=== PATIENT | male | born 1945 | race Native Hawaiian/Other Pacific Islander ===

== ENCOUNTER 2020-02-11 15:38 | Emergency (ER) | payer MEDICARE ==
[2020-02-11 15:49] VITALS: BP 171/97
[2020-02-11] MEDS ORDERED: TETANUS,DIPH,PERTUSS(ACELL) VACCINE 0.5 ML SYRINGE IM ONE (16:15)
[2020-02-11] MEDS ORDERED: MORPHINE 4 MG/1 ML INJ IV ONE (16:15)
[2020-02-11] MEDS ORDERED: SODIUM CHLORIDE 0.9% IRR 500 ML BOTTLE IR ONE (16:16)
[2020-02-11] MEDS ORDERED: LIDOCAINE (1%) 10 MG/1 ML VIAL 20 ML MDV INFILTRATI ONE (16:16)
--- NOTE | 2020-02-11 16:25 | Emergency Department Report ---
Upper Extremity - HPI Chief Complaint: Extremity Injury, Upper Stated Complaint: FINGER INJURY Time Seen by Provider: 02/11/20 16:10 Upper Extremity: Left Ring Finger, Left Little Finger Occurred When: Today Mechanism: Other (Patient cut his hands accidentally with a saw) Severity: severe Symptoms: Yes Pain with Movement, Yes Deformity, Yes Limited Range of Movement, Yes Swelling, Yes Bruising/Ecchymosis, Yes Laceration or Abrasion Other History: The patient is a 75-year-old gentleman, who is right-hand dominant, not known to myself previously, who reports no fever, cough, or confirmed exposure to coronavirus. He presents to the emergency room today with an accidental amputation of his left pinky, distal to the PIP joint, and near complete transection of the left fourth digit, approximately at the PIP joint. He has no other injuries, and no other complaints. ED Review of Systems ROS: Stated complaint: FINGER INJURY Other details as noted in HPI Comment: Please see history of present Constitutional: see HPI Eyes: as per HPI ENT: as per HPI Respiratory: see HPI Cardiovascular: as per HPI Endocrine: see HPI Gastrointestinal: as per HPI Genitourinary: as per HPI Musculoskeletal: as per HPI, arthralgia, myalgia Neurological: as per HPI Psychiatric: as per HPI Hematological/Lymphatic: as per HPI ED Past Medical Hx - Past Medical History Hx Diabetes: Yes (non compliant with meds) - Surgical History Past Surgical History?: Yes Additional Surgical History: RIGHT EYE SURGERY - Social History Smoking Status: Never Smoker Substance Use Type: None - Medications Home Medications: Home Medications Medication Instructions Recorded Confirmed Last Taken Type Clindamycin [Clindamycin CAP] 600 mg PO BID #20 capsule 01/14/16 Unknown Rx HYDROcodone/APAP 5-325 [Starke 1 each PO Q6HR PRN #14 tablet 01/14/16 Unknown Rx 5/325] Upper Extremity Exam - Exam General: Vital signs noted. No distress. Alert and acting appropriately. There is no facial droop. The tongue is midline. Extraocular movements are intact bilaterally. There is 5 out of 5 strength in bilateral upper and lower extremities. Sensation is intact to light touch bilateral upper and lower extremities. 2+ pulses noted in the bilateral upper extremities. There is an obvious left fifth finger complete amputation, distal to the PIP joint, and there is a laceration/near complete transection of the left fourth digit, at the PIP joint, with no obvious foreign body. The amputated pinky is currently wrapped in 4 x 4 gauze, cold sterile saline, and a bag/container, which is then placed in ice. Head and Torso: No HEENT Abnormality, No Neck Tenderness, No Chest/Lungs Abnormality, No Abdominal Tenderness, No Back Tenderness Shoulder Exam: Yes Normal Range of Motion in Shoulder, No Shoulder Tenderness, No Clavicle Tenderness, No Shoulder Deformity, No AC Joint Tenderness Arm Exam: No Arm/Humerus Tenderness, No Arm Deformity Elbow: Yes Normal Range of Motion in Elbow, No Elbow Tenderness, No Elbow Deformity Forearm: No Forearm Tenderness, No Forearm Deformity, No Pain with Pronation, No Pain with Supination Wrist: Yes Normal ROM in Wrist, No Wrist Tenderness, No Wrist Deformity, No Snuffbox Tenderness, No Pain with Axial Thumb Compression Hand: Yes Digit(s) Deformity, Yes Tendon Dysfunction, No Hand Tenderness, No Hand Deformity, No Digit Tenderness, No Normal ROM in Digit(s) CMS Exam: Yes Broken Skin, Yes Normal Distal Pulses, Yes Normal Capillary Refill ED Course Vital Signs 02/11/20 02/11/20 02/11/20 15:46 15:47 15:52 Temperature 97.8 F Pulse Rate 87 90 Respiratory 13 17 12 Rate Blood Pressure Blood Pressure 171/97 [Right] O2 Sat by Pulse 95 Oximetry 02/11/20 16:01 Temperature Pulse Rate 91 H Respiratory 16 Rate Blood Pressure 171/97 Blood Pressure [Right] O2 Sat by Pulse Oximetry - Procedure Description Procedures done: The carpometacarpal joint is identified on the left fourth and fifth digits, and cleansed with typical aseptic technique. Then, using a 26- gauge needle, approximately 1.5 cc of 0.25% bupivacaine without epinephrine are infiltrated on the fourth and fifth digits respectively, to perform a thecal block. The patient tolerated this procedure adequately - Laceration /Wound Repair Left Dorsal Finger Wound Length (cm): 3 Wound's Depth, Shape: into muscle, irregular, contused tissue Wound Explored: clean Irrigated w/ Saline (ccs): 500 Betadine Prep?: Yes Volume Anesthetic (ccs): 4 Wound Debrided: moderate Wound Repaired With: sutures Suture Size/Type: 4:0 (Monofilament, interrupted) Number of Sutures: 6 Layer Closure?: No Sterile Dressing Applied?: Yes ED Medical Decision Making - Lab Data Vital Signs 02/11/20 02/11/20 02/11/20 15:46 15:47 15:52 Temperature 97.8 F Pulse Rate 87 90 Respiratory 13 17 12 Rate Blood Pressure Blood Pressure 171/97 [Right] O2 Sat by Pulse 95 Oximetry 02/11/20 16:01 Temperature Pulse Rate 91 H Respiratory 16 Rate Blood Pressure 171/97 Blood Pressure [Right] O2 Sat by Pulse Oximetry - Radiology Data Radiology results: report reviewed, image reviewed Print Report Referring Physician: ANGELES BARLOW Patient Name: MC LY Date of : 1945 Sex: Male Report Date: 2020-02-11 Report Status: Finalized Findings [facility] [address] [place] [address] XRay Report Signed Patient: MC LY MR#: [id number] : 1945 Acct:[id number] Age/Sex: 75 / M ADM Date: 02/11/20 Loc: ED Attending Dr: Ordering Physician: ANGELES BARLOW MD Date of Service: 02/11/20 Procedure(s): XR hand 3+V LT Accession Number(s): [id number] cc: ANGELES BARLOW MD Fluoro Time In Minutes: XR hand 3+V LT INDICATION: Left finger injury. COMPARISON: None available. FINDINGS: There is an amputation of the fifth finger at the level of the little finger mid middle phalanx. There is also a comminuted fracture of the head of the ring finger proximal phalangeal head. There are no radiopaque foreign bodies. There is no other acute fracture. 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 This patient has an emergent medical condition at this time which cannot be definitively managed at this hospital as we do not have a reimplantation service, trauma service, or hand surgeon. The patient was given antibiotics, tetanus vaccination, his pain was treated, the left fourth digit was loosely reapproximated, placed in a splint, the patient will be transferred to [facility], where he was graciously accepted by the hand surgeon, Dr. Townsend Explained this plan of care to the patient and his , who verbalized understanding. The patient is hemodynamically suitable at this time for emergency medical transportation for definitive management. Critical care attestation.: If time is entered above; I have spent that time in minutes in the direct care of this critically ill patient, excluding procedure time. ED Disposition Clinical Impression: Amputation finger Qualifiers: Encounter type: initial encounter Qualified Code(s): S68.119A - Complete traumatic metacarpophalangeal amputation of unspecified finger, initial encounter Open fracture of finger of left hand Qualifiers: Encounter type: initial encounter Finger: ring finger Phalanx: middle Fracture alignment: nondisplaced Qualified Code(s): S62.655B - Nondisplaced fracture of middle phalanx of left ring finger, initial encounter for open fracture Finger laceration with complication Qualifiers: Encounter type: initial encounter Qualified Code(s): S61.219A - Laceration without foreign body of unspecified finger without damage to nail, initial encounter Disposition: DC/[facility]- [facility] IP Is pt being admited?: No Does the pt Need Aspirin: No Condition: Good
[2020-02-11] MEDS ORDERED: BUPIVACAINE/PF (0.5%) 5 MG/1 ML 10 ML VIAL INFILTRATI ONE ×2 (16:45→18:00)
--- NOTE | 2020-02-11 16:55 | XRay Report ---
XR hand 3+V LT INDICATION: Left finger injury. COMPARISON: None available. FINDINGS: There is an amputation of the fifth finger at the level of the little finger mid middle phalanx. Ther e is also a comminuted fracture of the head of the ring finger proximal phalangeal head. There are no radiopaque foreign bodies. There is no other acute fracture. There is mild DJD throughout the interp halangeal joints. Signer Name: Jn Stern MD Signed: 02/11/2020 4:51 PM Workstation Name: [id number]
[2020-02-11] MEDS ORDERED: NEOMY 3.5 MG/BACIT 400 UNITS/POLY B 5000 UNITS/GM OINT PACKET TP ONE (17:01)
[2020-02-11] MEDS ORDERED: BUPIVACAINE/PF (0.25%) 2.5 MG/ML 30 ML VIAL INFILTRATI ONE (17:18)
== END 2020-02-11 17:32 | disposition short-term general hospital (02) ==
LOC: ED 15:38
DX: S62.615B Displaced fracture of proximal phalanx of left ring finger, initial encounter for open fracture (principal); S61.215A Laceration without foreign body of left ring finger without damage to nail, initial encounter; S61.217A Laceration without foreign body of left little finger without damage to nail, initial encounter; E11.9 Type 2 diabetes mellitus without complications; Z98.890 Other specified postprocedural states; Z79.899 Other long term (current) drug therapy; W26.8XXA Contact with other sharp object(s), not elsewhere classified, initial encounter; Y93.89 Activity, other specified; Y92.89 Other specified places as the place of occurrence of the external cause; Y99.8 Other external cause status
CPT/HCPCS: 12002; 73130; 82962; 90471; 90715; 96365; 96375; 99285; J0690; J2270; A6250